=== PATIENT | female | born 1985 | race Two or more races ===

== ENCOUNTER 2020-03-05 21:02 | Emergency (ER) | payer BC, MEDICAID ==
[~2020-03-05] VITALS: Ht 165.1 cm; Wt 73.6 kg
[~2020-03-05 21:02] MED LIST: ESCI5TAB PO
[2020-03-05 22:08] LABS: URINE HCG NEGATIVE (NEG)
[2020-03-05 22:10] LABS: CLARITY,URINE CLEAR (Clear); COLOR,URINE YELLOW (Yellow); GLUCOSE, URINE NEGATIVE (Neg); KETONES,URINE NEGATIVE (Neg); LEUKOCYTE ESTERASE ,URINE NEGATIVE (Neg); NITRITES, URINE NEGATIVE (Neg); OCCULT BLOOD,URINE NEGATIVE (Neg); PH,URINE 6.5 (4.8-8.0); PROTEIN,URINE NEGATIVE (Neg); UROBILINOGEN,URINE 0.2 E.U/dL (0.2-1.0)
[2020-03-05 22:16] LABS: UA COLLECTION TYPE CLN CATCH MIDSTREAM
[2020-03-05 22:50] LABS: BASOPHILS % (AUTO) 0.8 % (0-1); EOSINOPHILS % (AUTO) 0.6 % (0-6); HEMATOCRIT 41.7 % (35.0-45.0); LYMPHOCYTES # (AUTO) 1.8 X10'3 (1.1-4.8); LYMPHOCYTES % (AUTO) 36.5 % (21-51); MEAN CORPUSCULAR HEMOGLOBIN 32.4 PG (27.0-31.0); MEAN CORPUSCULAR HGB CONC 33.5 g/dL (33.0-36.5); MEAN CORPUSCULAR VOLUME 96.7 FL (78-98); MEAN PLATELET VOLUME 7.4 FL (7.4-10.4); MONOCYTES # (AUTO) 0.4 X10'3 (0-0.9); MONOCYTES % (AUTO) 7.7 % (2-12); NEUTROPHILS # (AUTO) 2.7 X10'3 (1.8-7.7); NEUTROPHILS % (AUTO) 54.4 % (42-75); PLATELET COUNT 296 X10'3 (140-440); RED BLOOD COUNT 4.31 X10'6 (4.20-5.60); RED CELL DISTRIBUTION WIDTH 14.1 % (11.5-14.5)
[2020-03-05] MEDS ORDERED: normal saline 1000ml 1,000 ML IV ONE (22:50)
[2020-03-05] MEDS ORDERED: ondansetron/PF 4mg/2ml inj IV ONE (22:50)
[2020-03-05 23:04] LABS: ALANINE AMINOTRANSFERASE 32 U/L (12-78); ALBUMIN 3.5 G/DL (3.4-5.0); ALBUMIN/GLOBULIN RATIO 0.8 (1.1-1.5); ALKALINE PHOSPHATASE 78 IU/L (46-116); ANION GAP 12 (8-16); ASPARTATE AMINO TRANSFERASE 37 U/L (10-37); BILIRUBIN,TOTAL 0.2 MG/DL (0.1-1.0); BLOOD UREA NITROGEN 12 MG/DL (7-18); BUN/CREATININE RATIO 15.6 (6.6-38.0); CALCIUM 8.7 MG/DL (8.5-10.1); CHLORIDE 105 MMOL/L (99-107); CREATININE 0.77 MG/DL (0.40-0.90); GLUCOSE 100 MG/DL (70-104); LIPASE 88 U/L (73-393); POTASSIUM 3.7 MMOL/L (3.5-5.1); SODIUM 142 MMOL/L (135-145); TOTAL CARBON DIOXIDE 25.3 MMOL/L (24-32); TOTAL PROTEIN 7.7 G/DL (6.4-8.2); eGFR 84 ML/MIN
[2020-03-06] MEDS: LIDOcaine Viscous 15ml cup MM ONE ×2 (01:25→01:58)
[2020-03-06] MEDS: mag hydrox/Alum hydrox/simeth 30ml oral suspension PO ONE ×2 (01:25→01:58)
[2020-03-06] MEDS ORDERED: pantoprazole 40 MG vial IV STA (01:48)
[2020-03-06] MEDS ORDERED: dicyclomine 10 MG capsule PO ONE (01:50)
[2020-03-06 02:34] LABS: TROPONIN I < 0.04 NG/ML (0.0-0.05)
[2020-03-06 03:01] VITALS: BP 126/86
== END 2020-03-06 03:03 | disposition home or self-care (01) ==
LOC: ER 21:03
DX: K29.00 Acute gastritis without bleeding (principal); K21.9 Gastro-esophageal reflux disease without esophagitis; R11.10 Vomiting, unspecified; R10.9 Unspecified abdominal pain; R19.7 Diarrhea, unspecified; Z98.51 Tubal ligation status; Z88.0 Allergy status to penicillin; Z79.899 Other long term (current) drug therapy
CPT/HCPCS: 36415; 80053; 81003; 81025; 83690; 84484; 85025; 93005; 96361; 96374; 96375; 99284; C9113; J2405; J7030

== ENCOUNTER 2022-04-11 11:28 | Emergency (ER) | payer BC ==
[~2022-04-11] VITALS: Ht 165.1 cm; Wt 80.0 kg
[2022-04-11] MEDS ORDERED: folic acid 1mg/0.2ml inj IV ONE (12:25)
[2022-04-11] MEDS ORDERED: normal saline 1000ML IV soln IV ONE (12:25)
[2022-04-11] MEDS ORDERED: LORazepam 2 mg/ml vial IV ONE ×3 (12:25→14:00)
[2022-04-11] MEDS ORDERED: metoclopramide 5 mg/ml inj IV ONE (12:25)
[2022-04-11] MEDS ORDERED: thiamine 100mg/ml 2ml inj. IV ONE (12:25)
[2022-04-11 12:44] LABS: BASOPHILS # (AUTO) 0.1 X10'3 (0-0.2); EOSINOPHILS % (AUTO) 0 % (0-6); HEMATOCRIT 42.4 % (35.0-45.0); HEMOGLOBIN 14.6 g/dl (12.0-16.0); LYMPHOCYTES # (AUTO) 0.7 X10'3 (1.1-4.8); LYMPHOCYTES % (AUTO) 13.5 % (21-51); MEAN CORPUSCULAR HEMOGLOBIN 33.6 PG (27.0-31.0); MEAN CORPUSCULAR HGB CONC 34.4 g/dL (33.0-36.5); MEAN CORPUSCULAR VOLUME 97.5 FL (78-98); MEAN PLATELET VOLUME 7.2 FL (7.4-10.4); MONOCYTES # (AUTO) 0.4 X10'3 (0-0.9); MONOCYTES % (AUTO) 7.6 % (2-12); NEUTROPHILS # (AUTO) 3.9 X10'3 (1.8-7.7); NEUTROPHILS % (AUTO) 77.9 % (42-75); PLATELET COUNT 234 X10'3 (140-440); RED BLOOD COUNT 4.35 X10'6 (4.20-5.60); RED CELL DISTRIBUTION WIDTH 15.5 % (11.5-14.5)
[2022-04-11] MEDS ORDERED: famotidine/PF 10 mg/ml inj IV ONE (12:45)
[2022-04-11 13:00] LABS: ALANINE AMINOTRANSFERASE 76 U/L (12-78); ALBUMIN/GLOBULIN RATIO 0.9 (1.1-1.5); ALKALINE PHOSPHATASE 93 IU/L (46-116); ANION GAP 15 (8-16); ASPARTATE AMINO TRANSFERASE 188 U/L (10-37); BLOOD UREA NITROGEN 11 MG/DL (7-18); BUN/CREATININE RATIO 15.5 (6.6-38.0); CALCIUM 8.9 MG/DL (8.5-10.1); CHLORIDE 102 MMOL/L (99-107); CREATININE 0.71 MG/DL (0.40-0.90); GLUCOSE 118 MG/DL (70-104); MAGNESIUM 1.5 MG/DL (1.5-2.4); POTASSIUM 3.8 MMOL/L (3.5-5.1); SODIUM 137 MMOL/L (135-145); TOTAL CARBON DIOXIDE 19.6 MMOL/L (24-32); TOTAL PROTEIN 8.6 G/DL (6.4-8.2); eGFR > 90 ML/MIN
[2022-04-11] MEDS ORDERED: GABA100C PO (14:02)
[2022-04-11] MEDS ORDERED: ONDA4TAB12 PO (14:02)
[2022-04-11] MEDS ORDERED: LORA-269 PO (14:02)
[2022-04-11 15:42] VITALS: BP 109/84
== END 2022-04-11 15:33 | disposition home or self-care (01) ==
LOC: ER 11:28
DX: F10.239 Alcohol dependence with withdrawal, unspecified (principal); Z88.0 Allergy status to penicillin; Z98.51 Tubal ligation status; Y90.9 Presence of alcohol in blood, level not specified
CPT/HCPCS: 36415; 80053; 83735; 85025; 93005; 96361; 96374; 96375; 96376; 99285; J2060; J2765; J3411; J3490; J7030

== ENCOUNTER 2022-09-16 05:12 | Emergency (ER) | payer BC ==
[~2022-09-16] VITALS: Ht 157.5 cm; Wt 72.7 kg
[~2022-09-16 05:12] MED LIST changes: +GABA100C PO; +LORA-269 PO; +ONDA4TAB12 PO
[2022-09-16 05:35] LABS: BASOPHILS # (AUTO) 0.1 X10'3 (0-0.2); BASOPHILS % (AUTO) 1.5 % (0-1); EOSINOPHILS % (AUTO) 0.9 % (0-6); HEMATOCRIT 39.5 % (35.0-45.0); HEMOGLOBIN 13.2 g/dl (12.0-16.0); LYMPHOCYTES # (AUTO) 1.3 X10'3 (1.1-4.8); LYMPHOCYTES % (AUTO) 38.9 % (21-51); MEAN CORPUSCULAR HEMOGLOBIN 33.5 PG (27.0-31.0); MEAN CORPUSCULAR HGB CONC 33.3 g/dL (33.0-36.5); MEAN CORPUSCULAR VOLUME 100.5 FL (78-98); MEAN PLATELET VOLUME 7.1 FL (7.4-10.4); MONOCYTES # (AUTO) 0.4 X10'3 (0-0.9); MONOCYTES % (AUTO) 12.8 % (2-12); NEUTROPHILS # (AUTO) 1.5 X10'3 (1.8-7.7); NEUTROPHILS % (AUTO) 45.9 % (42-75); PLATELET COUNT 156 X10'3 (140-440); RED BLOOD COUNT 3.93 X10'6 (4.20-5.60); RED CELL DISTRIBUTION WIDTH 15.2 % (11.5-14.5); WHITE BLOOD COUNT 3.3 X10'3 (4.5-11.0)
[2022-09-16] MEDS ORDERED: proCHLORperazine 10 MG/2 ml inj IV ONE (05:35)
[2022-09-16] MEDS ORDERED: normal saline 1000ml 1,000 ML IV ONE (05:35)
[2022-09-16] MEDS ORDERED: LORazepam 2 mg/ml vial IV ONE (05:35)
[2022-09-16 05:58] LABS: ALANINE AMINOTRANSFERASE 135 U/L (12-78); ALBUMIN 3.9 G/DL (3.4-5.0); ALKALINE PHOSPHATASE 128 IU/L (46-116); ANION GAP 11 (8-16); ASPARTATE AMINO TRANSFERASE 372 U/L (10-37); BILIRUBIN,TOTAL 0.5 MG/DL (0.1-1.0); BLOOD UREA NITROGEN 6 MG/DL (7-18); BUN/CREATININE RATIO 8.5 (6.6-38.0); CALCIUM 8.7 MG/DL (8.5-10.1); CHLORIDE 103 MMOL/L (99-107); CREATININE 0.71 MG/DL (0.40-0.90); GLUCOSE 109 MG/DL (70-104); MAGNESIUM 1.7 MG/DL (1.5-2.4); POTASSIUM 3.8 MMOL/L (3.5-5.1); SODIUM 141 MMOL/L (135-145); TOTAL CARBON DIOXIDE 27.1 MMOL/L (24-32); TOTAL PROTEIN 7.9 G/DL (6.4-8.2); eGFR > 90 ML/MIN
[2022-09-16] MEDS ORDERED: thiamine 100mg/ml 2ml inj. IV ONE (06:05)
[2022-09-16 06:08] LABS: ETHANOL 0.324 GM/DL (0.0-0.010)
[2022-09-16 10:10] VITALS: BP 120/78
== END 2022-09-16 10:14 | disposition home or self-care (01) ==
LOC: ER 05:12
DX: F10.920 Alcohol use, unspecified with intoxication, uncomplicated (principal); Z88.0 Allergy status to penicillin; Y90.9 Presence of alcohol in blood, level not specified
CPT/HCPCS: 36415; 70450; 80053; 80320; 83735; 83880; 84484; 85025; 93005; 96361; 96374; 96375; 99285; J0780; J2060; J3411; J7030; A4615

== ENCOUNTER 2022-09-16 16:23 | Emergency (ER) | payer BC ==
[~2022-09-16] VITALS: Ht 165.1 cm; Wt 72.0 kg
[2022-09-16] MEDS ORDERED: chlordiazePOXIDE 25mg capsule PO ONE (22:15)
[2022-09-16] MEDS ORDERED: LORazepam 2 mg/ml vial IV ONE (22:15)
[2022-09-16] MEDS ORDERED: magnesium 2GM in 50ml NS 50 ML IV ONE (22:20)
[2022-09-16] MEDS ORDERED: normal saline 1000ML IV soln IVB ONE (22:25)
[2022-09-16 22:48] LABS: BASOPHILS % (AUTO) 0.9 % (0-1); EOSINOPHILS % (AUTO) 0 % (0-6); HEMATOCRIT 37.4 % (35.0-45.0); HEMOGLOBIN 12.5 g/dl (12.0-16.0); LYMPHOCYTES # (AUTO) 0.3 X10'3 (1.1-4.8); LYMPHOCYTES % (AUTO) 5.8 % (21-51); MEAN CORPUSCULAR HEMOGLOBIN 34.1 PG (27.0-31.0); MEAN CORPUSCULAR HGB CONC 33.5 g/dL (33.0-36.5); MEAN CORPUSCULAR VOLUME 101.6 FL (78-98); MEAN PLATELET VOLUME 7.9 FL (7.4-10.4); MONOCYTES # (AUTO) 0.3 X10'3 (0-0.9); MONOCYTES % (AUTO) 7.1 % (2-12); NEUTROPHILS # (AUTO) 4.2 X10'3 (1.8-7.7); NEUTROPHILS % (AUTO) 86.2 % (42-75); PLATELET COUNT 151 X10'3 (140-440); RED BLOOD COUNT 3.68 X10'6 (4.20-5.60); RED CELL DISTRIBUTION WIDTH 15.4 % (11.5-14.5); WHITE BLOOD COUNT 4.9 X10'3 (4.5-11.0)
[2022-09-16 23:04] LABS: ALANINE AMINOTRANSFERASE 138 U/L (12-78); ALKALINE PHOSPHATASE 120 IU/L (46-116); ANION GAP 19 (8-16); ASPARTATE AMINO TRANSFERASE 308 U/L (10-37); BLOOD UREA NITROGEN 9 MG/DL (7-18); BUN/CREATININE RATIO 11.7 (6.6-38.0); CALCIUM 8.6 MG/DL (8.5-10.1); CHLORIDE 97 MMOL/L (99-107); CREATININE 0.77 MG/DL (0.40-0.90); GLUCOSE 142 MG/DL (70-104); POTASSIUM 4.4 MMOL/L (3.5-5.1); SODIUM 135 MMOL/L (135-145); TOTAL CARBON DIOXIDE 18.7 MMOL/L (24-32); TOTAL PROTEIN 8.2 G/DL (6.4-8.2); eGFR 83 ML/MIN
--- NOTE | 2022-09-16 23:59 | NUR ---
PT RESTING IN ROOM APPEARS TO BE ASLEEP. PT DOES NOT APPEAR TO BE IN DISTRESS. TREMORS ARE NOT PRESENT AT THIS TIME.
[2022-09-17] MEDS ORDERED: LORazepam 1 MG tablet PO ONE (00:15)
[2022-09-17] MEDS ORDERED: normal saline 1000ML IV soln IVB ONE (00:15)
--- NOTE | 2022-09-17 00:48 | NUR ---
PT AWOKE FEELING SHAKEY AND ANXIOUS. PT GIVEN MEDICATION AND PLACED BACK INTO BED.
--- NOTE | 2022-09-17 01:15 | NUR ---
PT APPEARS TO BE SLEEPING. RESPIRATIONS EQUAL AND UNLABORED. TREMORS HAVE SUBSIDED.
[2022-09-17 01:48] VITALS: BP 127/97
== END 2022-09-17 02:05 | disposition home or self-care (01) ==
LOC: ER 16:24
DX: F10.930 Alcohol use, unspecified with withdrawal, uncomplicated (principal); R11.10 Vomiting, unspecified; Z88.0 Allergy status to penicillin; Z79.899 Other long term (current) drug therapy; Y90.9 Presence of alcohol in blood, level not specified
CPT/HCPCS: 36415; 80053; 85025; 96361; 96365; 96366; 96375; 99285; J2060; J3475; J7030